=== PATIENT | male | born 1990 | race African-American/Black ===

== ENCOUNTER 2016-11-20 23:37 | Emergency (ER) | payer OTHER ==
[~2016-11-20] VITALS: Ht 177.8 cm; Wt 86.0 kg
[~2016-11-20 23:37] MED LIST: AUGM875T PO; BENZ100 PO; IBUP800T23 PO; MEDR4PAK3 PO
[2016-11-20 23:39] VITALS: BP 137/82; PULSE 62; RESP 16; TEMP 98.4; O2SAT 96
[2016-11-21 02:00] VITALS: BP 136/89; PULSE 55; RESP 18; TEMP 97.8; O2SAT 98
[2016-11-21] MEDS ORDERED: ALBU6.7H INH (02:28)
[2016-11-21] MEDS ORDERED: ZITH250T PO (02:28)
[2016-11-21] MEDS ORDERED: AZITHROMYCIN 250 MG TAB PO ONE (02:30)
[2016-11-21] MEDS ORDERED: BENZONATATE 100 MG CAP PO ONE (02:30)
--- NOTE | 2016-11-21 02:32 | PD ---
HPI Chief Complaint: Cold / Flu Symptoms Time Seen by Provider: 02:22 Travel History International Travel<30 days: No Contact w/Intl Traveler<30days: No Traveled to known affect area: No History of Present Illness HPI 26-year-old black male presents emergent department with complaints of coughing congestion for 2 weeks. He states that is been seen at the clinic at school for the same problem. He's been given multiple [id number] remedies as well as a prescription for cough pills. He states that these have not significantly help. He is also currently taking Mucinex. The patient states that when he is performed activities it is causing him to cough so hard that he vomited. He denies any fever or chills. He admits to feeling rundown, malaise , sore throat, cough, pleuritic chest wall pain and posttussive emesis. He denies any abdominal pain. No typical nausea or vomiting otherwise. No urinary symptoms. PFSH Past Medical History Medical History: Denies Significant Hx Diminished Hearing: No Respiratory: Yes (ASTHMA) Tetanus Vaccination: < 5 Years Influenza Vaccination: Yes Past Surgical History Surgical History: No Previous Surgery Social History Alcohol Use: Yes (OCC) Tobacco Use: No Substance Use: No Allergies-Medications (Allergen,Severity, Reaction): Coded Allergies: No Known Allergies (Unverified , 11/20/16) Reported Meds & Prescriptions Reported Meds & Active Scripts Active Proventil Hfa 6.7 GM Inh (Albuterol Sulfate) 90 Mcg/Act Aer 2 Puff INH Q6H PRN Zithromax (Azithromycin) 250 Mg Tab 250 Mg PO DIRECTED Take 2 tabs (500 mg) on day 1 then 1 tab daily x 4 days. Review of Systems Except as stated in HPI: all other systems reviewed are Neg Physical Exam Narrative GENERAL: Well-developed, well-nourished in no acute distress. Nontoxic appearing. HEAD: Normocephalic, atraumatic. EYES: Pupils equal round and reactive. Extraocular motions intact. No scleral icterus. No injection or drainage. ENT: TMs clear without erythema. The external auditory canals clear. Nose: clear . Posterior pharynx is pink and moist. No tonsillar edema or exudate. Uvula midline. Airway patent. NECK: Trachea midline.Supple, nontender, moves head freely. No central bony tenderness or spasm. CARDIOVASCULAR: Regular rate and rhythm without murmurs, gallops, or rubs. RESPIRATORY: Clear to auscultation. Breath sounds equal bilaterally. No wheezes , rales, or rhonchi. GASTROINTESTINAL: Abdomen soft, non-tender, nondistended. No hepato-splenomegaly , or palpable masses. No guarding. EXTREMITIES: No clubbing, cyanosis, or edema. No joint tenderness, effusion, or edema noted. BACK: Nontender without deformity or crepitance. No flank tenderness. Data Data Last Documented VS Vital Signs Date Time Temp Pulse Resp B/P (MAP) Pulse Ox O2 Delivery O2 Flow Rate FiO2 11/21/16 02:00 98 Room Air 11/21/16 02:00 97.8 55 18 136/89 (105) Orders Orders Azithromycin (Zithromax) (11/21/16 02:30) Benzonatate (Tessalon) (11/21/16 02:30) MDM Medical Decision Making Medical Screen Exam Complete: Yes Emergency Medical Condition: Yes Medical Record Reviewed: Yes Differential Diagnosis MDM: High Differential diagnoses: Pneumonia, bronchitis, URI, asthma, RAD, legionnaire's disease, SARS, ARDS, influenza, bronchiolitis, RSV,PE,CHF Narrative Course The patient is given Zithromax 500 mg and Tessalon Perles 200 mg by mouth Diagnosis Primary Impression: Acute bronchitis Qualified Codes: J20.9 - Acute bronchitis, unspecified Patient Instructions: General Instructions Additional Instructions: Rest. Increase fluids. Tylenol and Advil. Continue Mucinex Zithromax and albuterol. Followup with your Dr. in one week. Return to the ER for any problems. Med/Other Pt SpecificInfo: Prescription(s) given Scripts Albuterol 6.7 GM Inh (Proventil Hfa 6.7 GM Inh) 90 Mcg/Act Aer 2 PUFF INH Q6H Y for SHORTNESS OF BREATH, #1 INHALER 0 Refills Prov: Karen Beltran MD 11/21/16 Azithromycin (Zithromax) 250 Mg Tab 250 MG PO DIRECTED for Infection, #6 TAB 0 Refills Take 2 tabs (500 mg) on day 1 then 1 tab daily x 4 days. Prov: Karen Beltran MD 11/21/16 Disposition: 01 DISCHARGE HOME Condition: Stable Johnathan Ngo Nov 21, 2016 02:32
[2016-11-21 02:43] VITALS: BP 138/93; PULSE 56; RESP 18; O2SAT 98
== END 2016-11-21 02:44 | disposition home or self-care (01) ==
LOC: NEPD 23:37
DX: J20.9 Acute bronchitis, unspecified (principal); R07.0 Pain in throat; R11.10 Vomiting, unspecified; Z87.09 Personal history of other diseases of the respiratory system
CPT/HCPCS: 99284